=== PATIENT | male | born 1965 | race Caucasian/White ===

== ENCOUNTER 2023-01-09 17:34 | Emergency (ER) | payer OTHER, MEDICAID, SELFPAY ==
[2023-01-09 17:39] VITALS: BP 150/84; PULSE 72; RESP 14; TEMP 36.2; O2SAT 99; BMI 29.4
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
[2023-01-09 17:54] VITALS: BP 132/78; PULSE 80; RESP 14; O2SAT 99
[2023-01-09] MEDS: OXYCODONE/ACETAMINOPHEN 5/325 TABLET 2 TAB PO (18:41)
--- NOTE | 2023-01-09 18:43 | PC.NURSE ---
C-Spine cleared, pt complaining of left shoulder and right knee pain. Pt medicated. Will continue to monitor pain and assess for any new injury.
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
[2023-01-09] MEDS: ACETAMINOPHEN 325 MG TABLET PO (19:26)
[2023-01-09] MEDS: IBUPROFEN 400 MG TABLET PO (19:27)
[2023-01-09] MEDS: OXYCODONE/APAP 5/325 PREPACK 1 BOTTLE MISC (19:27)
[2023-01-09] MEDS: ONDANSETRON 4 MG ODT PREPACK 1 BOTTLE MISC (19:27)
[2023-01-09 19:32] VITALS: BP 121/73; PULSE 88; RESP 18; O2SAT 96
== END 2023-01-09 19:51 | disposition home or self-care (01) ==
PROVIDERS: Emergency Provider Emergency Medicine
DX: S06.0X1A Concussion with loss of consciousness of 30 minutes or less, initial encounter (principal); S16.1XXA Strain of muscle, fascia and tendon at neck level, initial encounter; S80.01XA Contusion of right knee, initial encounter; V29.408A Other motorcycle driver injured in collision with unspecified motor vehicles in traffic accident, initial encounter
CPT/HCPCS: 70450; 72125; 99284

== ENCOUNTER → 2023-06-20 08:46 | Outpatient (CLI) | payer BC, SELFPAY ==
--- NOTE | 2023-06-20 08:47 | DI.MRI.S_ITS ---
PROCEDURE: MR LUMBAR SPINE WO CON INDICATIONS: Low back pain, unspecified TECHNIQUE: Noncontrast sagittal T1 spin echo and T2 fast echo, sagittal STIR, and T2 fast spin echo through the lumbar spine. In cases with scoliosis, additional coronal T2 fast spin echo may be performed. COMPARISON: None. FINDINGS: Image quality: Excellent. Alignment and Curvature: There is normal bony alignment. Bone Marrow: Marrow is of normal overall signal. Scattered foci are seen, which are hyperintense on T1-weighted and T2-weighted imaging, which are most consistent with benign vertebral body hemangiomas. The most prominent of these is seen within the L1 vertebral body posteriorly and on the left. No acute vertebral body compression fractures. Spinal Cord: Conus medullaris terminates at the L1 level. Visualized cord demonstrates normal signal and size. Paraspinous Soft Tissues: No paravertebral masses. T12-L1: Moderate loss of disc height is seen. Loss of disc signal is seen. Mild to moderate disc bulge is seen, with a mild central disc protrusion. No neural foraminal narrowing is seen. Minimal central canal narrowing is seen. L1-L2: Moderate loss of disc height is seen. Loss of disc signal is seen. Moderate disc bulge is seen, which is eccentric to the left. There is a left foraminal disc protrusion, as on series 6, image 7. There is mild facet hypertrophy. There is moderate left-sided and no significant right-sided neural foraminal narrowing. Minimal central canal narrowing is seen. L2-L3: There is at least moderate loss of disc height and disc signal seen on the right-side. Reactive marrow endplate changes are seen which are hypointense on T1-weighted imaging and hyperintense on T2 weighted imaging, which is most consistent with edema (Modic type I changes). At least moderate disc bulge is seen, which is eccentric to the right. There is a superimposed central disc protrusion. Mild facet joint hypertrophy is seen. Moderate bilateral neural foraminal narrowing is seen. Moderate central canal narrowing is seen. L3-L4: Mdbg-kg-gdzzhzdw loss of disc height and disc signal can be seen. Mild to moderate disc bulge is seen. There is a superimposed central disc protrusion. There is ykwn-gj-iwsdxhmb facet hypertrophy. There is moderate right-sided and at least moderate left-sided neural foraminal narrowing. There is a degree of compression seen upon the exiting right L3 nerve root. Mild central canal narrowing is seen. L4-L5: Mild loss of disc height is seen. Loss of disc signal is seen. Mild to moderate disc bulge is seen. Mild facet joint hypertrophy is seen. There is moderate right-sided and at least moderate left-sided neural foraminal narrowing. Minimal central canal narrowing is seen. L5-S1: Moderate to severe loss of disc height and disc signal can be seen. Mild reactive marrow endplate changes are seen posteriorly, which are hypointense on T1-weighted imaging and hyperintense on T2 weighted imaging, which is most consistent with edema (Modic type I changes). At least moderate disc bulge is seen, which is eccentric to the left. Moderate facet joint hypertrophy is seen. There is at least moderate bilateral neural foraminal narrowing seen. There is a degree of compression seen upon the exiting nerve roots. Mild central canal narrowing is seen. IMPRESSION: Multiple levels of lumbar spine degenerative change can be seen, which are overall worst at L2-L3 and at L5-S1. Dictated by: Jonathon Lisa M.D. on 06/20/2023 at 11:07 Approved by: Jonathon Lisa M.D. on 06/20/2023 at 11:11
== END ==
PROVIDERS: Referring Provider Anesthesiology; Visit Provider Anesthesiology
DX: M47.816 Spondylosis without myelopathy or radiculopathy, lumbar region (principal); M47.817 Spondylosis without myelopathy or radiculopathy, lumbosacral region; M54.50 Low back pain, unspecified; G89.29 Other chronic pain
CPT/HCPCS: 72148

== ENCOUNTER → 2023-06-26 19:58 | Outpatient (CLI) | payer BC, SELFPAY ==
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
== END ==
PROVIDERS: Referring Provider Anesthesiology; Visit Provider Anesthesiology
DX: M51.36 Other intervertebral disc degeneration, lumbar region (principal); M54.50 Low back pain, unspecified
CPT/HCPCS: 72110

== ENCOUNTER 2023-07-12 07:53 | Outpatient (CLI) | payer BC, OTHER, SELFPAY ==
[2023-07-12] VITALS (8 sets, daily range): BP systolic 100–124; BP diastolic 58–73; PULSE 63–74; RESP 15–21; TEMP 36.3; O2SAT 97–100
--- NOTE | 2023-07-12 08:30 | DI.RAD.S_ITS ---
PROCEDURE: PAIN L/S FACET INJ/BLK 1ST CLARITA INDICATIONS: SPONDYLOSIS COMPARISON: None. FINDINGS: Fluoroscopic spot filming was performed to verify placement of spinal needles at the bilateral L3, L4 and L5 level(s), as labeled on the films. Appropriate location(s) of the needle tip(s) was confirmed by injection of iodinated contrast. IMPRESSION: Intra procedural examination demonstrating appropriate positions of the needles. Dictated by: Alessandro Orourke M.D. on 07/12/2023 at 9:47 Approved by: Alessandro Orourke M.D. on 07/12/2023 at 9:48
[2023-07-12] MEDS: MIDAZOLAM 2 MG/2 ML VIAL IV (08:34)
[2023-07-12] MEDS: iopamidoL 15 ML VIAL 3 ML INJ (08:36)
[2023-07-12] MEDS: BUPIVACAINE 0.5% (PF) 10 ML VIAL 5 ML INJ (08:36)
--- NOTE | 2023-07-12 12:17 | P.PCN_ITS ---
Date/Time/Diagnoses Date of procedure: 07/12/23 Time of procedure: 08:30 Procedure Notes Physician: Fredrick Ruffin Total Fluoroscopy time (seconds): 18 Total sedation minutes: 12 Procedure in detail & Post-procedure care: Bilateral L3, 4, 5 Lumbar Medial Branch Blocks Indications: Clint is presenting for treatment of lumbar spondylosis with low back pain. Preoperative diagnosis: Lumbar spondylosis Postoperative diagnosis: Same Pre-procedure History: Patient demonstrates today moderate to severe non- radicular back pain without neurologic deficit aggravated by hyperextension yes Back pain greater than leg pain? yes Patient today has tenderness over the suspected joint(s) yes History of post-traumatic injury? no Hypertrophic arthropathy yes Back pain associated with suspected motion segment instability, hypermobility or pseudoarthrosis no Focused Examination: Ax3 Mood and affect are normal Vital Signs: VSS ASA: 2 Consent: Following review of allergies and potential side effects/complications, including, but not necessarily limited to, infection, allergic reaction, local tissue breakdown, stroke, temporary or permanent nerve injury, paralysis, and possible , the patient indicated that they understood and agreed to proceed.? An informed consent document was signed by the patient, witnessed by a nurse and placed in the patient's chart.? Additionally, other treatment options including medications and physical therapy were reviewed with the patient. All questions were answered. Site was then marked. Anesthesia: After review of previous anesthetic history and IV conscious sedation, the patient was deemed safe to proceed with today's procedure with IV conscious sedation. IV sedation was accomplished with midazolam 2 mg administered by the RN after order by Dr. Ruffin. Sedation was titrated to patient comfort during the course of the procedure. Patient remained responsive to all verbal commands. Position: Prone Monitoring: NIBP, Pulse oximetry, 3 lead EKG Needle used: 22 ga 3.5 inch spinal needle Contrast: Isovue 300M Injectate: 0.5% bupivacaine 1 mL per site Procedure: The patient was brought into the procedure room and positioned into the prone position. Skin was prepped with a Chloraprep solution, allowed to air dry, and then draped in sterile fashion.? The right L4-5 and L5-S1 facet joints were visually identified with fluoroscopy. Lidocaine 1% was used to anesthetize the skin over each target destination with a 25ga needle. A 22 ga, 3.5 inch spinal needle was advanced to the location of the medial branch at the junction of the superior articular process and the transverse process at L4,5 and the base of the SAP of the sacrum using intermittent fluoroscopy in the AP view. Isovue 300M contrast 0.2ml was injected at each level outlining the medial borders for each level and the base of the SAP of the sacrum in the AP and lateral views. There was no evidence of vascular or intrathecal uptake. The above injectate was slowly injected at each target destination. The left L4-5 and L5-S1 facet joints were visually identified with fluoroscopy. Lidocaine 1% was used to anesthetize the skin over each target destination with a 25ga needle. A 22 ga, 3.5 inch spinal needle was advanced to the location of the medial branch at the junction of the superior articular process and the transverse process at L4,5 and the base of the SAP of the sacrum using intermittent fluoroscopy in the AP view. Isovue 300M contrast 0.2ml was injected at each level outlining the medial borders for each level and the base of the SAP of the sacrum in the AP and lateral views. There was no evidence of vascular or intrathecal uptake. The above injectate was slowly injected at each target destination. At the end of the procedure the needles were withdrawn and Band- Aids were applied for a dressing. Post Procedure: Patient was taken to the recovery and monitored. The patient was provided a Pain Log to continue to record the patient's response to the target- specific procedure prior to the patient's follow-up visit with the referring physician. Patient was stable upon discharge. Detailed post procedure instructions were provided. Patient was asked to call in the event of worsening pain, fever, weakness, numbness or bladder or bowel incontinence. Based on the medial branches blocked today, if the patient meets insurance criteria for radiofrequency, the treatment should result in the denervation of the bilateral L4-5 and L5-S1 facet joint nerves. We would expect to denervate a total of 4 facets during the radiofrequency ablation.
== END 2023-07-12 09:09 | disposition home or self-care (01) ==
LOC: RAD 07:54
PROVIDERS: Referring Provider Anesthesiology; Visit Provider Anesthesiology
DX: M47.816 Spondylosis without myelopathy or radiculopathy, lumbar region (principal)
CPT/HCPCS: 64493; 64494; 99152; J2250

== ENCOUNTER 2023-08-09 07:53 | Outpatient (CLI) | payer BC, SELFPAY ==
[2023-08-09] VITALS (8 sets, daily range): BP systolic 107–126; BP diastolic 63–75; PULSE 72–76; RESP 13–18; TEMP 35.7; O2SAT 95–97
--- NOTE | 2023-08-09 08:00 | DI.RAD.S_ITS ---
PROCEDURE: PAIN L INTERLAMINAR/CAUDAL INJ INDICATIONS: LUMBAR RADICULOPATHY COMPARISON: [facility], CR, XR LUMBAR SPINE MIN 4V, 06/26/2023, 20:03. [facility], MR, MR LUMBAR SPINE WO CON, 06/20/2023, 9:02. FINDINGS: Fluoroscopic spot filming was performed to verify placement of spinal needles at the L5-S1 level(s), as labeled on the films. Appropriate location(s) of the needle tip(s) was confirmed by injection of iodinated contrast. IMPRESSION: Fluoroscopy for pain management. Dictated by: Omari Page M.D. on 08/09/2023 at 9:00 Approved by: Omari Page M.D. on 08/09/2023 at 9:01
[2023-08-09] MEDS: MIDAZOLAM 2 MG/2 ML VIAL IV (08:15)
[2023-08-09] MEDS: iopamidoL 15 ML VIAL 3 ML INJ (08:20)
[2023-08-09] MEDS: DEXAMETHASONE 10 MG/ML VIAL INJ (08:21)
--- NOTE | 2023-08-09 11:47 | P.PCN_ITS ---
Date/Time/Diagnoses Date of procedure: 08/09/23 Time of procedure: 08:00 Procedure Notes Physician: Fredrick Ruffin Total Fluoroscopy time (seconds): 12 Total sedation minutes: 10 Procedure in detail & Post-procedure care: L5-S1 Interlaminar Epidural Steroid Injection Indications: Clint is presenting for treatment of lumbar radiculopathy with low back and leg pain. Preoperative diagnosis: Lumbar radiculopathy Postoperative diagnosis: Same Focused Examination: Ax3 Mood and affect are normal Vital Signs: VSS ASA: 2 Consent: Following review of allergies and potential side effects/complications, including, but not necessarily limited to, infection, allergic reaction, local tissue breakdown, stroke, temporary or permanent nerve injury, paralysis, and possible , the patient indicated that they understood and agreed to pro ceed.? An informed consent document was signed by the patient, witnessed by a nurse and placed in the patient's chart.? Additionally, other treatment options including medications and physical therapy were reviewed with the patient. All questions were answered. Site was then marked. Anesthesia: After review of previous anesthetic history and IV conscious sedation, the patient was deemed safe to proceed with today's procedure with IV conscious sedation. IV sedation was accomplished with midazolam 2 mg administered by the RN after order by Dr. Ruffin. Sedation was titrated to patient comfort during the course of the procedure. Patient remained responsive to all verbal commands. Position: Prone Monitoring: NIBP, Pulse oximetry, 3 lead EKG Needle used: 18 G 3.5? Tuohy Contrast: Isovue 300M Injectate: Dexamethasone 10 mg with 1% lidocaine 2 mL Technique: The skin was prepped with chloraprep and then draped in a sterile fashion. Time out was performed as per protocol. Oxygen applied via NC. Skin and subcutaneous structures of the needle entry site was then infiltrated with 3 mL of lidocaine 1%. Under AP, lateral and contralateral oblique fluoroscopic control, the Tuohy needle was guided into the L5-S1 epidural space. The space was accessed with loss of resistance technique. Isovue 300M was then injected and the spread was consistent with the epidural space. There was no evidence for intravascular or intrathecal uptake. After negative aspiration, the above- mentioned injectate was then slowly administered and the needle withdrawn. The patient expressed no unusual discomfort or paresthesias during the injection. Band-Aids applied to injection sites. EBL: less than 1 ml Complications: None Post Procedure: Patient was taken to the recovery and monitored. The patient was provided a Pain Log to continue to record the patient's response to the target- specific procedure prior to the patient's follow-up visit with the referring physician. Patient was stable upon discharge. Detailed post procedure instructions were provided. Patient was asked to call in the event of worsening pain, fever, weakness, numbness or bladder or bowel incontinence.
--- NOTE | 2023-08-10 11:37 | PC.NURSE ---
Post procedure call- Patient reports that he has some tension still to his lower back but that the pain has improved. Has no new symptoms and continues all his normal medications. Has no questions or concern. He has called office and left message for a f/u appt.
== END 2023-08-09 08:53 | disposition home or self-care (01) ==
LOC: RAD 07:54
PROVIDERS: Referring Provider Anesthesiology; Visit Provider Anesthesiology
DX: M54.16 Radiculopathy, lumbar region (principal)
CPT/HCPCS: 62323; 99152; J1100; J2250

== ENCOUNTER 2023-09-13 15:18 | Outpatient (CLI) | payer BC, SELFPAY ==
--- NOTE | 2023-09-13 15:30 | DI.RAD.S_ITS ---
PROCEDURE: PAIN L INTERLAMINAR/CAUDAL INJ INDICATIONS: Radiculopathy COMPARISON: [facility], XA, PAIN L INTERLAMINAR/CAUDAL INJ, 08/09/2023, 9:19. FINDINGS: Fluoroscopic spot filming was performed to verify placement of spinal needles at the left L3-4 level(s), as labeled on the films. Appropriate location(s) of the needle tip(s) was confirmed by injection of iodinated contrast. IMPRESSION: Fluoroscopic guidance utilized for an L3-4 epidural steroid injection. Dictated by: Miki Tineo M.D. on 09/13/2023 at 17:11 Approved by: Miki Tineo M.D. on 09/13/2023 at 17:11
[2023-09-13 15:41] VITALS: BP 130/64; PULSE 71; RESP 16; O2SAT 96
[2023-09-13] MEDS: MIDAZOLAM 2 MG/2 ML VIAL IV (15:41)
[2023-09-13 15:46] VITALS: BP 121/55; PULSE 77; RESP 17; O2SAT 99
[2023-09-13] MEDS: iopamidoL 15 ML VIAL 3 ML INJ (15:47)
[2023-09-13] MEDS: DEXAMETHASONE 10 MG/ML VIAL INJ (15:48)
[2023-09-13 15:51] VITALS: BP 117/57; PULSE 75; RESP 22; O2SAT 97
--- NOTE | 2023-09-13 15:57 | P.PCN_ITS ---
Date/Time/Diagnoses Date of procedure: 09/13/23 Time of procedure: 15:30 Procedure Notes Physician: Fredrick Ruffin Total Fluoroscopy time (seconds): 18 Total sedation minutes: 10 Procedure in detail & Post-procedure care: L3-4 Interlaminar Epidural Steroid Injection Indications: Clint is presenting for treatment of lumbar radiculopathy with low back and leg pain. Preoperative diagnosis: Lumbar radiculopathy Postoperative diagnosis: Same Focused Examination: Ax3 Mood and affect are normal Vital Signs: VSS ASA: 2 Consent: Following review of allergies and potential side effects/complications, including, but not necessarily limited to, infection, allergic reaction, local tissue breakdown, stroke, temporary or permanent nerve injury, paralysis, and possible , the patient indicated that they understood and agreed to proc eed.? An informed consent document was signed by the patient, witnessed by a nurse and placed in the patient's chart.? Additionally, other treatment options including medications and physical therapy were reviewed with the patient. All questions were answered. Site was then marked. Anesthesia: After review of previous anesthetic history and IV conscious sedation, the patient was deemed safe to proceed with today's procedure with IV conscious sedation. IV sedation was accomplished with midazolam 2 mg administered by the RN after order by Dr. Ruffin. Sedation was titrated to patient comfort during the course of the procedure. Patient remained responsive to all verbal commands. Position: Prone Monitoring: NIBP, Pulse oximetry, 3 lead EKG Needle used: 18 G 3.5? Tuohy Contrast: Isovue 300M Injectate: Dexamethasone 10 mg with 1% lidocaine 2 mL Technique: The skin was prepped with chloraprep and then draped in a sterile fashion. Time out was performed as per protocol. Oxygen applied via NC. Skin and subcutaneous structures of the needle entry site was then infiltrated with 3 mL of lidocaine 1%. Under AP, lateral and contralateral oblique fluoroscopic control, the Tuohy needle was guided into the L3-4 epidural space. The space was accessed with loss of resistance technique. Isovue 300M was then injected and the spread was consistent with the epidural space. There was no evidence for intravascular or intrathecal uptake. After negative aspiration, the above- mentioned injectate was then slowly administered and the needle withdrawn. The patient expressed no unusual discomfort or paresthesias during the injection. Band-Aids applied to injection sites. EBL: less than 1 ml Complications: None Post Procedure: Patient was taken to the recovery and monitored. The patient was provided a Pain Log to continue to record the patient's response to the target- specific procedure prior to the patient's follow-up visit with the referring physician. Patient was stable upon discharge. Detailed post procedure instructions were provided. Patient was asked to call in the event of worsening pain, fever, weakness, numbness or bladder or bowel incontinence.
[2023-09-13 16:01] VITALS: BP 119/70; PULSE 99; RESP 16; O2SAT 99
[2023-09-13 16:06] VITALS: BP 137/65; PULSE 68; RESP 18; O2SAT 100
[2023-09-13 16:11] VITALS: BP 131/68; PULSE 72; RESP 16; O2SAT 100
== END 2023-09-13 16:15 | disposition home or self-care (01) ==
PROVIDERS: Referring Provider Anesthesiology; Visit Provider Anesthesiology
DX: M54.16 Radiculopathy, lumbar region (principal)
CPT/HCPCS: 62323; 99152; J1100; J2250

== ENCOUNTER 2024-06-09 06:31 | Emergency (ER) | payer BC, SELFPAY ==
[2024-06-09] VITALS (11 sets, daily range): BP systolic 123–143; BP diastolic 62–80; PULSE 65–81; RESP 16–18; TEMP 35.9; O2SAT 94–100; BMI 28.3
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
--- NOTE | 2024-06-09 06:53 | PC.NURSE ---
Pt writhing and swearing. Reports pain to back and left leg. Pt is able to transfer self to gurney. Pulling at shirt to remove, placed in gown.
--- NOTE | 2024-06-09 07:01 | DI.MRI.S_ITS ---
PROCEDURE: MR LUMBAR SPINE WO CON INDICATIONS: weakness left leg TECHNIQUE: Noncontrast sagittal T1 spin echo and T2 fast echo, sagittal STIR, and T2 fast spin echo through the lumbar spine. In cases with scoliosis, additional coronal T2 fast spin echo may be performed. COMPARISON: [facility], CR, XR LUMBAR SPINE MIN 4V, 06/26/2023, 20:03. [facility], MR, MR LUMBAR SPINE WO CON, 06/20/2023, 9:02. FINDINGS: Image quality: This examination is highly limited by involuntary motion artifact. Images are repeated, with some improvement. Alignment and Curvature: There is minimal retrolisthesis at L1-L2, with mild retrolisthesis at L2-L3. Minimal retrolisthesis can be seen at L3-L4 and at L5-S1. Bone Marrow: Marrow is of normal overall signal. No acute vertebral body compression fractures. Spinal Cord: Conus medullaris terminates at the L1 level. Visualized cord demonstrates normal signal and size. Paraspinous Soft Tissues: No paravertebral masses. T12-L1: Moderate loss of disc height is seen. Loss of disc signal is seen. Mild to moderate disc bulge is seen, with a central disc protrusion. No neural foraminal narrowing or central canal narrowing can be seen. No significant change from the prior. L1-L2: Moderate loss of disc height is seen. Loss of disc signal is seen. Bridging endplate osteophytes are seen. Mild to moderate disc bulge is seen, which is eccentric to the left. There is a left foraminal disc protrusion, as on series 6, image 5. There is mild left-sided and no right-sided neural foraminal narrowing. Minimal central canal narrowing is seen. No significant change from the prior. L2-L3: At least moderate loss of disc height and disc signal can be seen. Reactive marrow endplate changes are seen, which demonstrate mixed T1 weighted and T2-weighted signal, and are attributed to a combination of edema and fatty metaplasia (Modic type I and Modic type II changes). Moderate generalized disc bulge is seen. Mild facet joint hypertrophy is seen. There is at least moderate right-sided and moderate left-sided neural foraminal narrowing. Unfh-gm-eqrwkaet central canal narrowing is seen. When comparison is made with the prior images, these findings are similar. L3-L4: Ylmv-ef-rmiefzvd loss of disc height and disc signal can be seen. Moderate generalized disc bulge is seen. There is a superimposed central disc protrusion. There is at least moderate left-sided and moderate right-sided neural foraminal narrowing. Mild central canal narrowing is seen. When comparison is made with the prior images, these findings are similar. L4-L5: The disc height is well-preserved. Loss of disc signal is seen at this level. Mild to moderate disc bulge is seen, which is eccentric to the left. There is a superimposed central disc protrusion. Mild facet joint hypertrophy is seen. There is at least moderate left-sided neural foraminal narrowing, with a degree of compression seen upon the exiting left L4 nerve root. There is sknv-qa-tedyywir right-sided neural foraminal narrowing. Mild central canal narrowing is seen. The degree of left-sided neural foraminal narrowing is progressed compared to the prior. L5-S1: At least moderate loss of disc height is seen. Loss of disc signal is seen. Moderate generalized disc bulge is seen. Moderate facet joint hypertrophy is seen. There is moderate to severe bilateral neural foraminal narrowing seen, with an associated degree of compression seen upon the exiting nerve roots. When comparison is made with the prior images, these findings are similar. IMPRESSION: There is interval progression in the degree of left-sided neural foraminal narrowing at the L4-L5 level compared to the prior MRI. Multiple levels of lumbar spine degenerative change can be seen, which otherwise are similar to the prior. Dictated by: Jonathon Lisa M.D. on 06/09/2024 at 9:07 Approved by: Jonathon Lisa M.D. on 06/09/2024 at 9:13
[2024-06-09] MEDS: HYDROMORPHONE 1 MG INJ IV ×2 (07:11→08:30)
[2024-06-09] MEDS: KETOROLAC 30 MG/ML VIAL 15 MG IV (07:11)
[2024-06-09 07:14] LABS: Add Manual Diff / Slide Review NO; Basophils Absolute Auto 100 /uL (0-100); Basophils Percent Auto 0.7 % (0-2); Eosinophils Absolute Auto 200 /uL (0-450); Hematocrit 49.8 % (41-53); Hemoglobin 16.6 g/dL (13.5-17.5); Lymphocytes Absolute Auto 3100 /uL (1100-4500); Lymphocytes Percent Auto 25.4 % (25-40); Mean Corpuscular HGB Conc 33.4 % (30-36); Mean Corpuscular Hemoglobin 29.7 PG (26-34); Monocytes Absolute Auto 1100 /uL (0-900); Monocytes Percent Auto 9.1 % (3-14); Neutrophils Absolute Auto 7500 /uL (1500-7000); Neutrophils Percent Auto 62.8 % (50-75); Platelet Count 239 X10^3/uL (150-400); Red Blood Cell Count 5.59 X10^6/uL (4.5-5.9); Red Cell Distribution Width 14.4 % (11.6-14.8)
[2024-06-09 07:30] LABS: Alanine Aminotransferase 21 IU/L (<50); Albumin 4.2 g/dL (3.5-5.0); Albumin Globulin Ratio 1.5 (1.0-2.8); Alkaline Phosphatase 76 U/L (38-126); Aspartate Aminotransferase 20 IU/L (17-59); BUN Creatinine Ratio 11.7 (6-22); Bilirubin Total 0.7 mg/dL (0.2-1.3); Blood Urea Nitrogen 13 mg/dL (9-20); C-Reactive Protein Quant 2.3 mg/dL (<1.0); Calcium 9.4 mg/dL (8.4-10.2); Carbon Dioxide 25 mmol/L (22-32); Chloride 103 mmol/L (98-107); Estimated Glomerular Filt Rate > 60 mL/min (>60); Globulin 2.8 g/dL (1.7-4.1); Glucose 112 mg/dL (70-100); HEMOLYSIS < 15 (0-50); Potassium 3.8 mmol/L (3.4-5.1); Sodium 138 mmol/L (137-145)
[2024-06-09 07:36] LABS: Erythrocyte Sedimentation Rate 3 MM/HR (0-15)
--- NOTE | 2024-06-09 07:42 | PC.NURSE ---
Pt states he cannot tolerate the amount of pain he is in anymore. Has been taking prescribed narcotics and steroids the past week. The last few days his pain has worsened. MRI scheduled on monday but pt is unable to wait. Pt states The pain makes me want to drink. 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 This pain is going to drive me to drink. Pt states has not been able to get consistent pain control for over the last year.
[2024-06-09] MEDS: LORazepam 2 MG/ML INJ 1 MG IV (07:53)
[2024-06-09] MEDS: MORPHINE 4 MG/ML INJ IV (09:00)
[2024-06-09] MEDS: LORazepam 2 MG/ML INJ 0.5 MG IV (09:01)
== END 2024-06-09 10:36 | disposition home or self-care (01) ==
PROVIDERS: Emergency Provider Emergency Medicine
DX: M54.42 Lumbago with sciatica, left side (principal)
CPT/HCPCS: 36415; 72148; 80053; 85025; 85651; 86140; 96374; 96375; 96376; 99284; J1171; J1885; J2060; J2270

== ENCOUNTER 2024-06-10 03:17 | Emergency (ER) | payer BC, SELFPAY ==
[2024-06-10 03:31] VITALS: BP 111/78; PULSE 69; RESP 17; TEMP 36.8; O2SAT 99; BMI 28.3
--- NOTE | 2024-06-10 03:47 | ED_ITS ---
HPI - Back Pain/Injury General Chief Complaint: Back Pain/Injury Stated Complaint: Pain Time Seen by Provider: 06/10/24 03:47 Source: patient and EMS History of Present Illness HPI Narrative: 58-year-old male with ongoing low back problems, previous injections and back procedures, seen most recently yesterday morning here, was awaiting MRI Monday but it was performed yesterday, patient was discharged with new prescription oxycodone and Robaxin. He feels that this is not controlling his pain well enough. He is taking meloxicam anti-inflammatory medication as well. He does not seem to be having numbness to the perineum, nor incontinence of urine or stool. He has left-sided buttock thigh pain. No new injuries. He has primary care at [facility], and feels frustrated he has not able to be referred in a timely fashion to spinal surgeon. He would like additional pain relief. Related Data Previous Rx's Medication Instructions Recorded meloxicam 7.5 mg tablet 7.5 mg PO DAILY #30 tabs 09/11/23 methocarbamol 750 mg tablet 1,500 mg (2 x 750 mg) PO Q8H PRN 06/09/24 muscle spasm #20 tabs oxycodone 5 mg tablet 5 mg PO Q6H PRN pain #15 tabs 06/09/24 methylprednisolone 4 mg tablets in See Rx Instructions PO .COMPLEX 06/10/24 a dose pack (Medrol (Demario)) #21 ea Allergies Allergy/AdvReac Type Severity Reaction Status Date / Time No Known Drug Allergies Allergy Verified 09/11/23 08:35 Review of Systems Review of Systems Narrative: See HPI Patient History Medical History Syrinx of spinal cord Lumbar radiculopathy Lumbar spondylosis Cervical spinal stenosis Impingement of left shoulder Tendinopathy of left biceps Traumatic incomplete tear of rotator cuff Left shoulder pain Cervical radiculopathy Low back pain Social History Smoking Status: Current every day smoker Smoking Status: Current every day smoker tobacco type: vaping alcohol intake frequency: 0-2 drinks per day Substance Use Type: does not use Exam Narrative Exam Narrative: GENERAL: Well-developed patient, in mild distress. HEAD: Atraumatic. Normocephalic. EYES: Pupils equal round and reactive. Extraocular motions intact. No scleral icterus. No injection or drainage. ENT: Nose without bleeding, purulent drainage. Throat without erythema, tonsillar hypertrophy or exudate. Airway patent. NECK: Trachea midline. Non tender CARDIOVASCULAR: Regular rate and rhythm without murmurs, gallops, or rubs. RESPIRATORY: Clear to auscultation. Breath sounds equal bilaterally. No wheezes, rales, or rhonchi. GASTROINTESTINAL: Abdomen soft, non-tender, nondistended. EXTREMITIES: No edema or joint tenderness. BACK: Nontender midline in paraspinous lumbar and thoracic spine without deformity or crepitance. No flank tenderness. No tenderness to palpation midline lumbar spine, nor paraspinous muscular regions. No skin changes or vesicles or rash NEURO: AOx3. Motor functions grossly nonfocal. Straight leg raise left leg supine position about 30?. Straight leg raise right leg supine position 60?. SKIN: No rash or erythema of visible areas Initial Vital Signs Initial Vital Signs: Vital Signs Temperature 98.2 F 06/10/24 03:31 Pulse Rate 69 06/10/24 03:31 Respiratory Rate 17 06/10/24 03:31 Blood Pressure 111/78 06/10/24 03:31 Pulse Oximetry 99 06/10/24 03:31 Oxygen Delivery Method Room Air 06/10/24 03:31 Course Orders Ordered: Discontinued Medications Dexamethasone (Dexamethasone 10 Mg/Ml Vial) 10 mg IV NOW ONE Stop: 06/10/24 04:28 Last Admin: 06/10/24 04:40 Dose: 10 mg Documented By: ALDA Diazepam (Diazepam 10 Mg/2 Ml Syringe) 5 mg IV NOW ONE Stop: 06/10/24 04:29 Last Admin: 06/10/24 04:40 Dose: 5 mg Documented By: ALDA Hydromorphone HCl (Hydromorphone 1 Mg Inj) 1 mg IV NOW ONE Stop: 06/10/24 04:28 Last Admin: 06/10/24 04:38 Dose: 1 mg Documented By: ALDA Vital Signs Vital signs: Vital Signs - 8 hr 06/10/24 03:31 06/10/24 04:57 06/10/24 06:33 Temperature 98.2 F Pulse Rate 69 73 75 Respiratory Rate 17 15 17 Blood Pressure 111/78 105/67 154/67 H Pulse Oximetry 99 91 99 Oxygen Delivery Method Room Air Room Air Room Air MDM - Back Pain/Injury MDM Narrative Medical decision making narrative: Ongoing chronic back pain, desires consultation with [facility] spine surgery, most recently seen for low back pain/sciatica yesterday here, when he was able to have MRI of the lumbar spine that was scheduled for 3 days from now, results not clear to the patient, but there was no emergent referral/transfer advised, stating that he intends to contact [facility] primary care to expedite surgical referral later today during open Monday hours. He was prescribed refill oxycodone 5/325 last night, along with Robaxin muscle relaxant, taking same Meloxicam anti-inflammatory pain medication. He is seeking relief, as these oral medications do not seem to be helping. He has taken steroids in the past, seems amenable to trying steroids again. We obtain MRI report lumbar spine performed here yesterday. IV Decadron, IV Dilaudid, IV Valium. We will hold IV Toradol, as patient takes chronic NSAID meloxicam. Records review, 06/09/2024 MRI lumbar spine, [facility]. Impression: ?There is interval progression in the degree of left-sided neural foraminal narrowing at the L4-L5 level compared to the prior MRI. Multiple levels of lumbar spine degenerative change can be seen, which otherwise are similar to the prior. See radiology report Patient sleeping, looks more comfortable Patient called for a ride, has oxycodone/APAP and methocarbamol/Robaxin prescriptions from visit yesterday. We will add Medrol Dosepak steroid tapering regimen. Encouraged to follow up with [facility] primary care today during open hours, to hopefully expedite referrals to spine surgery and or pain management. Patient on discharge paperwork was given clinic contact information for [facility] orthopedics spine surgery, and also with [facility] pain management provider. Improved, discharged home with friend who will drive patient. Copies of MRI lumbar spine onto disc for review at outside facilities if needed. Photo copy of MRI report from yesterday provided to patient. Follow up with spine surgery and pain management. Return precautions referenced in discharge papers Discharge Plan Departure Patient Disposition: Home Clinical Impression: Low back pain radiating to left leg Activity Restrictions/Additional Instructions: Ongoing low back pain, with radiation to the left leg. MRI done yesterday showed progression of left-sided neuroforaminal narrowing at the level of L4-L5 compared to a comparison MRI. Continue taking your oxycodone, meloxicam, Robaxin/methocarbamol. For now add Medrol pack steroid tapering regimen as a temporizing measure. Consider seeing pain specialty management if epidural spinal steroid injections might be helpful for you. Copy of your MRI report for follow up. Copy of your MRI images onto disc for follow up. Consider referral to [facility] Pain Management, Dr. Dao. Although you might require referral from [facility] primary care provider. Sometimes epidural steroid injections might be helpful, if this provider or a colleague could provide relief with such a procedure. Consider referral to [facility] spine surgeon, Dr. Reich. Although you might require referral from [facility] primary care provider. Prescriptions: New methylprednisolone [Medrol (Demario)] 4 mg tablets,dose pack See Rx Instructions PO .COMPLEX Qty: 21 0RF Rx Instructions: orally per package directions; 6 tablets 1st day, 5 tablets 2nd day, 4 tablets 3rd day, 3 tablets 4th day, 2 tablets 5th day, 1 tablet on 6th day No Action methocarbamol 750 mg tablet 1,500 mg PO Q8H PRN (Reason: muscle spasm) Qty: 20 0RF oxycodone 5 mg tablet 5 mg PO Q6H PRN (Reason: pain) Qty: 15 0RF meloxicam 7.5 mg tablet 7.5 mg PO DAILY Qty: 30 2RF Referrals: Asha Reich MD [Physician] - Miscellaneous,MD Fany [Primary Care Provider] - Sergio Dao DO [Non-Staff] - Stand Alone Forms: Patient Portal/API/Survey
[2024-06-10] MEDS: HYDROMORPHONE 1 MG INJ IV (04:38)
[2024-06-10] MEDS: diazePAM 10 MG/2 ML SYRINGE 5 MG IV (04:40)
[2024-06-10] MEDS: DEXAMETHASONE 10 MG/ML VIAL IV (04:40)
[2024-06-10 04:57] VITALS: BP 105/67; PULSE 73; RESP 15; O2SAT 91
[2024-06-10 06:33] VITALS: BP 154/67; PULSE 75; RESP 17; O2SAT 99
== END 2024-06-10 06:30 | disposition home or self-care (01) ==
PROVIDERS: Emergency Provider Emergency Medicine
DX: M54.42 Lumbago with sciatica, left side (principal)
CPT/HCPCS: 96374; 96375; 99283; 99284; J1100; J1171; J3360